=== PATIENT | male | born 1960 | race Caucasian/White ===

== ENCOUNTER 2020-07-26 14:34 | Emergency (ER) | payer BC, OTHER ==
[~2020-07-26] VITALS: Ht 183 cm; Wt 154.0 kg
[2020-07-26] MEDS ORDERED: HYDROcodone/APAP 7.5 MG/325 MG (LORTAB, LORCET PLUS) TABLET PO ONE (14:45)
--- NOTE | 2020-07-26 14:49 | ED Cough/URI ---
General Chief Complaint: Respiratory Problems Stated Complaint: COVID + History of Present Illness Date Seen by Provider: Jul 26, 2020 Time Seen by Provider: 14:49 Initial Comments 60-year-old male presents with cough, generalized malaise mild shortness of breath. Patient started having symptoms on 07/19/2020. Patient reports that he started feeling a little bit worse with some mildly increased feeling of shortness of breath and is worried about trying to make sure he does not get pneumonia. Patient tested positive for Covid on 07/24/2020. He denies any nausea vomiting diarrhea. He does not complain of a fever currently. Allergies and Home Medications Allergies Coded Allergies: No Known Drug Allergies (Unverified , 07/26/20) Patient Home Medication List Home Medication List Reviewed: Yes Review of Systems Review of Systems Constitutional: No dizziness; malaise Respiratory: cough, short of breath Cardiovascular: No chest pain, No palpitations Gastrointestinal: No abdominal pain, No nausea, No vomiting Genitourinary: no symptoms reported Musculoskeletal: no symptoms reported Skin: no symptoms reported Psychiatric/Neurological: No Symptoms Reported Past Cehjces-Rulkge-Tootmr Hx Past Med/Social Hx: Reviewed Nursing Past Med/Soc Hx Physical Exam Vital Signs - First Documented 07/26/20 14:40 Temp 37.4 Pulse 95 Resp 20 B/P (MAP) 134/90 (105) Pulse Ox 93 O2 Delivery Room Air Capillary Refill : Height: '" Weight: lbs. oz. kg; BMI Method: General Appearance: WD/WN, no apparent distress, obese Respiratory: lungs clear, normal breath sounds Cardiovascular: normal peripheral pulses, regular rate, rhythm Gastrointestinal: non tender, soft Extremities: non-tender, normal inspection Neurologic/Psychiatric: alert, normal mood/affect, oriented x 3 Skin: normal color, warm/dry Focused Exam Lactate Level 07/26/20 15:00: Lactic Acid Level 1.20 Lactic Acid Level Laboratory Tests Test 07/26/20 15:00 Lactic Acid Level 1.20 MMOL/L (0.50-2.00) Progress/Results/Core Measures Suspected Sepsis SIRS Temperature: Pulse: Respiratory Rate: Laboratory Tests 07/26/20 15:00: White Blood Count 5.8 Blood Pressure / Mean: 07/26/20 15:00: Lactic Acid Level 1.20 Laboratory Tests 07/26/20 15:00: Creatinine 0.91, INR Comment 1.0, Platelet Count 215, Total Bilirubin 0.4 Results/Orders Lab Results Laboratory Tests Test 07/26/20 15:00 Range/Units White Blood Count 5.8 4.3-11.0 10^3/uL Red Blood Count 4.93 4.30-5.52 10^6/uL Hemoglobin 14.4 13.3-17.7 g/dL Hematocrit 44 40-54 % Mean Corpuscular Volume 89 80-99 fL Mean Corpuscular Hemoglobin 29 25-34 pg Mean Corpuscular Hemoglobin Concent 33 32-36 g/dL Red Cell Distribution Width 12.9 10.0-14.5 % Platelet Count 215 130-400 10^3/uL Mean Platelet Volume 9.2 9.0-12.2 fL Immature Granulocyte % (Auto) 0 % Neutrophils (%) (Auto) 62 42-75 % Lymphocytes (%) (Auto) 24 12-44 % Monocytes (%) (Auto) 13 H 0-12 % Eosinophils (%) (Auto) 0 0-10 % Basophils (%) (Auto) 0 0-10 % Neutrophils # (Auto) 3.6 1.8-7.8 10^3/uL Lymphocytes # (Auto) 1.4 1.0-4.0 10^3/uL Monocytes # (Auto) 0.8 0.0-1.0 10^3/uL Eosinophils # (Auto) 0.0 0.0-0.3 10^3/uL Basophils # (Auto) 0.0 0.0-0.1 10^3/uL Immature Granulocyte # (Auto) 0.0 0.0-0.1 10^3/uL Prothrombin Time 13.2 12.2-14.7 SEC INR Comment 1.0 0.8-1.4 Activated Partial Thromboplast Time 33 24-35 SEC Fibrinogen 567 H 221-496 MG/DL Sodium Level 135 135-145 MMOL/L Potassium Level 4.2 3.6-5.0 MMOL/L Chloride Level 102 98-107 MMOL/L Carbon Dioxide Level 22 21-32 MMOL/L Anion Gap 11 5-14 MMOL/L Blood Urea Nitrogen 13 7-18 MG/DL Creatinine 0.91 0.60-1.30 MG/DL Estimat Glomerular Filtration Rate > 60 BUN/Creatinine Ratio 14 Glucose Level 115 H 70-105 MG/DL Lactic Acid Level 1.20 0.50-2.00 MMOL/L Calcium Level 9.1 8.5-10.1 MG/DL Corrected Calcium 9.3 8.5-10.1 MG/DL Total Bilirubin 0.4 0.1-1.0 MG/DL Aspartate Amino Transf (AST/SGOT) 25 5-34 U/L Alanine Aminotransferase (ALT/SGPT) 27 0-55 U/L Alkaline Phosphatase 47 40-136 U/L Lactate Dehydrogenase 339 H 125-220 U/L Troponin I < 0.028 <0.028 NG/ML C-Reactive Protein High Sensitivity 6.73 H 0.00-0.50 MG/DL Total Protein 6.8 6.4-8.2 GM/DL Albumin 3.8 3.2-4.5 GM/DL My Orders Orders - KYLEIGH MARIE L DO Vital Signs: Every 4 Hours (Or (07/26/20 14:49) Cbc With Automated Diff (07/26/20 14:49) Comprehensive Metabolic Panel (07/26/20 14:49) Ferritin (07/26/20 14:49) LDH (07/26/20 14:49) Hs C Reactive Protein (07/26/20 14:49) Troponin I (07/26/20 14:49) Lactic Acid Analyzer (07/26/20 14:49) Protime With Inr (07/26/20 14:49) Partial Thromboplastin Time (07/26/20 14:49) Fibrinogen (07/26/20 14:49) Ekg Tracing (07/26/20 14:49) Chest 1 View, Ap/Pa Only (07/26/20 14:49) Vital Signs/I&O 07/26/20 07/26/20 14:40 15:48 Temp 37.4 37.4 Pulse 95 91 Resp 20 20 B/P (MAP) 134/90 (105) 122/87 (105) Pulse Ox 93 93 O2 Delivery Room Air Capillary Refill : Progress Note : Progress Note Patient with no oxygen needs, he does have elevated BMI epidemic increased risk. He does qualify for a monoclonal antibiotic infusion. Patient will receive monoclonal antibody infusion today as an outpatient. Patient was stable and discharged home. ECG Initial ECG Impression Date: Jul 26, 2020 Initial ECG Impression Time: 15:07 Initial ECG Rate: 88 Initial ECG Rhythm: Normal Sinus Initial ECG Intervals: Normal Initial ECG Impression: Normal Comment nsr, hr 88, no acute findings Diagnostic Imaging Diagonstic Imaging: Xray Plain Films/CT/US/NM/MRI: chest [facility] [place] [place] NAME: HAVEN CHIU REC#: [id number] PT STATUS: REG ER : 1960 PHYSICIAN: KYLEIGH MARIE DO ADMIT DATE: 07/26/20/ER Draft Date of Exam:07/26/20 CHEST 1 VIEW, AP/PA ONLY INDICATION: Cough, sob, covid +. COMPARISON: None FINDINGS: Single frontal view of the chest demonstrates normal heart size and pulmonary vascularity. The lungs show low inspiratory volumes with patchy bibasilar airspace disease. No large pleural effusion or pneumothorax is seen. The visualized osseous structures show no acute abnormalities. IMPRESSION: 1. Low lung volumes with probable patchy bibasilar atelectasis. Dictated on workstation # [id number] Dict: 07/26/20 1526 Trans: 07/26/20 1529 [facility] [id number] Interpreted by: SHANTELLE JAVIER MD Reviewed: Reviewed by Me, Reviewed/Discussed Departure Impression Primary Impression: COVID-19 Disposition: 01 HOME, SELF-CARE Condition: Stable Departure-Patient Inst. Patient Instructions: Bamlanivimab FDA Fact Sheet, Coronavirus Disease 2019 (COVID-19) Overview KYLEIGH MARIE DO Jul 26, 2020 14:49
[2020-07-26 15:08] LABS: BASOPHILS % (AUTO) 0 % (0-10); EOSINOPHILS % (AUTO) 0 % (0-10); HEMATOCRIT 44 % (40-54); HEMOGLOBIN 14.4 g/dL (13.3-17.7); LYMPHOCYTES # (AUTO) 1.4 10^3/uL (1.0-4.0); LYMPHOCYTES % (AUTO) 24 % (12-44); MEAN CORPUSCULAR HEMOGLOBIN 29 pg (25-34); MEAN CORPUSCULAR HGB CONC 33 g/dL (32-36); MEAN CORPUSCULAR VOLUME 89 fL (80-99); MEAN PLATELET VOLUME 9.2 fL (9.0-12.2); MONOCYTES # (AUTO) 0.8 10^3/uL (0.0-1.0); MONOCYTES % (AUTO) 13 % (0-12); NEUTROPHILS # (AUTO) 3.6 10^3/uL (1.8-7.8); NEUTROPHILS % (AUTO) 62 % (42-75); PLATELET COUNT 215 10^3/uL (130-400); WHITE BLOOD COUNT 5.8 10^3/uL (4.3-11.0)
[2020-07-26 15:19] LABS: PROTHROMBIN TIME PATIENT 13.2 SEC (12.2-14.7)
[2020-07-26 15:20] LABS: ALBUMIN 3.8 GM/DL (3.2-4.5); CHLORIDE 102 MMOL/L (98-107); POTASSIUM 4.2 MMOL/L (3.6-5.0); SODIUM 135 MMOL/L (135-145)
[2020-07-26 15:21] LABS: CALCIUM 9.1 MG/DL (8.5-10.1)
[2020-07-26 15:22] LABS: GLUCOSE 115 MG/DL (70-105); TOTAL PROTEIN 6.8 GM/DL (6.4-8.2)
[2020-07-26 15:23] LABS: CARBON DIOXIDE 22 MMOL/L (21-32)
[2020-07-26 15:24] LABS: BILIRUBIN,TOTAL 0.4 MG/DL (0.1-1.0)
[2020-07-26 15:26] LABS: ALKALINE PHOSPHATASE 47 U/L (40-136); CREATININE SERUM 0.91 MG/DL (0.60-1.30); GFR ESTIMATED > 60
[2020-07-26 15:27] LABS: BUN/CREATININE RATIO 14
[2020-07-26 15:29] LABS: ALANINE AMINOTRANSFERASE 27 U/L (0-55)
--- NOTE | 2020-07-26 15:29 | Diagnostic Imaging Report ---
INDICATION: Cough, sob, covid +. COMPARISON: None FINDINGS: Single frontal view of the chest demonstrates normal heart size and pulmonary vascularity. The lungs show low inspiratory volumes with patchy bibasilar airspace disease. No large pleural effusion or pneumothorax is seen. The visualized osseous structures show no acute abnormalities. IMPRESSION: 1. Low lung volumes with probable patchy bibasilar atelectasis. Dictated by: Dictated on workstation # [id number]
[2020-07-26 15:48] VITALS: BP 122/87
== END 2020-07-26 15:48 | disposition home or self-care (01) ==
LOC: ER 14:36
DX: U07.1 COVID-19 (principal); E66.9 Obesity, unspecified
CPT/HCPCS: 36415; 71045; 80053; 82728; 83605; 83615; 84484; 85025; 85384; 85610; 85730; 86141; 93005

== ENCOUNTER → 2020-07-26 | Outpatient (CLI) | payer BC ==
[~2020-07-26] VITALS: Ht 183 cm; Wt 154.0 kg
[~2020-07-26] MED LIST: BAMLANIVIMAB (NON FORM) 700 MG in NS (IVPB) 100 ML IV ONE; EPINEPHrine INJECTION 1 MG/ML AMP IM PRN; diphenhydrAMINE 50 MG/ML INJ (BENADRYL) IV PRN
[2020-07-26 16:45] VITALS: BP 134/90
[2020-07-26 18:15] VITALS: BP 121/75
== END ==
LOC: INFUSION 16:34
PROVIDERS: ATTEND Student in an Organized Health Care Education/Training Program
DX: U07.1 COVID-19 (principal)

== ENCOUNTER 2020-11-16 21:14 | Emergency (ER) | payer BC ==
[~2020-11-16] VITALS: Ht 182.9 cm; Wt 155.0 kg
--- NOTE | 2020-11-16 21:17 | ED Abdominal Pain ---
General Chief Complaint: Abdominal/GI Problems Stated Complaint: LOWER RT SIDE BACK PAIN History of Present Illness Date Seen by Provider: Nov 16, 2020 Time Seen by Provider: 21:17 Initial Comments 60-year-old male presents with right low flank/back pain. He reports that he was "just sitting there" around 7 to 7:30 PM when the pain hit him. It has been fairly constant. He cannot find a comfortable position. He does not have any nausea, vomiting or urinary symptoms. He has no recent injury or increased activity. Allergies and Home Medications Allergies Coded Allergies: No Known Drug Allergies (Unverified , 07/26/20) Patient Home Medication List Home Medication List Reviewed: Yes Review of Systems Review of Systems Constitutional: no symptoms reported EENTM: No Symptoms Reported Respiratory: No Symptoms Reported Cardiovascular: No Symptoms Reported Gastrointestinal: No Symptoms Reported Genitourinary: See HPI Musculoskeletal: see HPI Psychiatric/Neurological: No Symptoms Reported Endocrine: No Symptoms Reported Past Hyjtzps-Jcxlxa-Odlkqg Hx Past Med/Social Hx: Reviewed Nursing Past Med/Soc Hx Patient Social History Recent Hopitalizations: No Seasonal Allergies Seasonal Allergies: No Past Medical History Surgeries: Yes Gallbladder Respiratory: No Cardiac: Yes High Cholesterol, Hypertension Neurological: No Genitourinary: No Gastrointestinal: No Musculoskeletal: No Endocrine: No HEENT: No Cancer: No Psychosocial: No Integumentary: No Physical Exam Vital Signs Vital Signs - First Documented 11/16/20 21:20 Temp 36.8 Pulse 75 Resp 18 B/P (MAP) 161/99 (119) Pulse Ox 99 O2 Delivery Room Air Capillary Refill : Height/Weight/BMI Height: '" Weight: lbs. oz. kg; 45.00 BMI Method: General Appearance: no apparent distress Respiratory: lungs clear, normal breath sounds Cardiovascular: normal peripheral pulses, regular rate, rhythm Gastrointestinal: non tender, soft Extremities: normal range of motion, non-tender Back: CVA tenderness (R) Neurologic/Psychiatric: alert, normal mood/affect, oriented x 3 Skin: normal color, warm/dry Progress/Results/Core Measures Results/Orders Lab Results Laboratory Tests Test 11/16/20 21:25 11/16/20 21:35 Range/Units Urine Color YELLOW Urine Clarity CLEAR Urine pH 5.5 5-9 Urine Specific [place] >=1.030 1.016-1.022 Urine Protein NEGATIVE NEGATIVE Urine Glucose (UA) NEGATIVE NEGATIVE Urine Ketones NEGATIVE NEGATIVE Urine Nitrite NEGATIVE NEGATIVE Urine Bilirubin NEGATIVE NEGATIVE Urine Urobilinogen 0.2 < = 1.0 MG/DL Urine Leukocyte Esterase NEGATIVE NEGATIVE Urine RBC (Auto) 2+ H NEGATIVE Urine RBC 2-5 H /HPF Urine WBC RARE /HPF Urine Squamous Epithelial Cells NONE /HPF Urine Crystals NONE /LPF Urine Bacteria TRACE /HPF Urine Casts NONE /LPF Urine Mucus SMALL H /LPF Urine Culture Indicated NO White Blood Count 8.5 4.3-11.0 10^3/uL Red Blood Count 4.95 4.35-5.85 10^6/uL Hemoglobin 14.6 13.3-17.7 G/DL Hematocrit 44 40-54 % Mean Corpuscular Volume 89 80-99 FL Mean Corpuscular Hemoglobin 29 25-34 PG Mean Corpuscular Hemoglobin Concent 33 32-36 G/DL Red Cell Distribution Width 13.6 10.0-14.5 % Platelet Count 316 130-400 10^3/uL Mean Platelet Volume 9.2 7.4-10.4 FL Immature Granulocyte % (Auto) 0 % Neutrophils (%) (Auto) 44 42-75 % Lymphocytes (%) (Auto) 42 12-44 % Monocytes (%) (Auto) 12 0-12 % Eosinophils (%) (Auto) 2 0-10 % Basophils (%) (Auto) 1 0-10 % Neutrophils # (Auto) 3.7 1.8-7.8 X 10^3 Lymphocytes # (Auto) 3.5 1.0-4.0 X 10^3 Monocytes # (Auto) 1.0 0.0-1.0 X 10^3 Eosinophils # (Auto) 0.2 0.0-0.3 10^3/uL Basophils # (Auto) 0.1 0.0-0.1 10^3/uL Immature Granulocyte # (Auto) 0.0 0.0-0.1 10^3/uL Sodium Level 138 135-145 MMOL/L Potassium Level 4.0 3.6-5.0 MMOL/L Chloride Level 104 98-107 MMOL/L Carbon Dioxide Level 23 21-32 MMOL/L Anion Gap 11 5-14 MMOL/L Blood Urea Nitrogen 17 7-18 MG/DL Creatinine 1.19 0.60-1.30 MG/DL Estimat Glomerular Filtration Rate > 60 BUN/Creatinine Ratio 14 Glucose Level 109 H 70-105 MG/DL Calcium Level 9.0 8.5-10.1 MG/DL Corrected Calcium 9.0 8.5-10.1 MG/DL Total Bilirubin 0.4 0.1-1.0 MG/DL Aspartate Amino Transf (AST/SGOT) 19 5-34 U/L Alanine Aminotransferase (ALT/SGPT) 22 0-55 U/L Alkaline Phosphatase 59 40-136 U/L Total Protein 6.9 6.4-8.2 GM/DL Albumin 4.0 3.2-4.5 GM/DL My Orders Orders - KYLEIGH MARIE DO Cbc With Automated Diff (11/16/20 21:22) Comprehensive Metabolic Panel (11/16/20 21:22) Ua Culture If Indicated (11/16/20 21:22) Ketorolac Injection (Toradol Injection) (11/16/20 21:22) Ct Abdomen/Pelvis Wo (11/16/20 21:45) Vital Signs/I&O 11/16/20 21:20 Temp 36.8 Pulse 75 Resp 18 B/P (MAP) 161/99 (119) Pulse Ox 99 O2 Delivery Room Air Progress Progress Note : Progress Note Patient with a 3 mm distal right ureter stone. Patient with mild symptoms. He is will try Tylenol and ibuprofen as needed for pain. If he needs further pain medication he will follow-up with a primary care provider tomorrow. Patient stable and discharged home Diagnostic Imaging Diagonstic Imaging: CT Plain Films/CT/US/NM/MRI: abdomen Comments 3 mm kidney stone approximately 2 cm above the UVJ, distal right ureter Reviewed: Reviewed [facility] Study Departure Impression Primary Impression: Right distal ureteral calculus Disposition: 01 HOME, SELF-CARE Condition: Stable Departure-Patient Inst. Referrals: SELF,ZENIA MOROCHO (PCP/Family) Primary Care Physician Patient Instructions: Kidney Stones in Adults, How to Strain Your Urine Add. Discharge Instructions: Follow-up with your primary care provider and neurologist as needed Tylenol and ibuprofen as needed for pain All discharge instructions reviewed with patient and/or family. Voiced understanding. KYLEIGH MARIE DO Nov 16, 2020 21:17
[2020-11-16] MEDS ORDERED: KETOROLAC 30 MG/ML VIAL IVP STA (21:22)
[2020-11-16 21:41] LABS: BILIRUBIN,URINE NEGATIVE (NEGATIVE); CLARITY,URINE CLEAR; COLOR,URINE YELLOW; GLUCOSE, URINE (UA) NEGATIVE (NEGATIVE); KETONES,URINE NEGATIVE (NEGATIVE); LEUKOCYTE ESTERASE ,URINE NEGATIVE (NEGATIVE); NITRITE,URINE NEGATIVE (NEGATIVE); PH,URINE 5.5 (5-9); PROTEIN,URINE NEGATIVE (NEGATIVE)
[2020-11-16 21:42] LABS: BACTERIA,URINE TRACE /HPF; WBC,URINE RARE /HPF
[2020-11-16 21:44] LABS: BASOPHILS % (AUTO) 1 % (0-10); EOSINOPHILS % (AUTO) 2 % (0-10); HEMATOCRIT 44 % (40-54); HEMOGLOBIN 14.6 G/DL (13.3-17.7); LYMPHOCYTES % (AUTO) 42 % (12-44); MEAN CORPUSCULAR HEMOGLOBIN 29 PG (25-34); MEAN CORPUSCULAR HGB CONC 33 G/DL (32-36); MEAN CORPUSCULAR VOLUME 89 FL (80-99); MEAN PLATELET VOLUME 9.2 FL (7.4-10.4); MONOCYTES % (AUTO) 12 % (0-12); NEUTROPHILS % (AUTO) 44 % (42-75); PLATELET COUNT 316 10^3/uL (130-400); WHITE BLOOD COUNT 8.5 10^3/uL (4.3-11.0)
[2020-11-16 21:45] LABS: BASOPHILS # (AUTO) 0.1 10^3/uL (0.0-0.1); EOSINOPHILS # (AUTO) 0.2 10^3/uL (0.0-0.3); LYMPHOCYTES # (AUTO) 3.5 X 10^3 (1.0-4.0); NEUTROPHILS # (AUTO) 3.7 X 10^3 (1.8-7.8)
[2020-11-16 22:03] LABS: SODIUM 138 MMOL/L (135-145)
[2020-11-16 22:04] LABS: ALANINE AMINOTRANSFERASE 22 U/L (0-55); ALKALINE PHOSPHATASE 59 U/L (40-136); BILIRUBIN,TOTAL 0.4 MG/DL (0.1-1.0); BUN/CREATININE RATIO 14; CARBON DIOXIDE 23 MMOL/L (21-32); CHLORIDE 104 MMOL/L (98-107); CREATININE SERUM 1.19 MG/DL (0.60-1.30); GFR ESTIMATED > 60; GLUCOSE 109 MG/DL (70-105); TOTAL PROTEIN 6.9 GM/DL (6.4-8.2)
[2020-11-16 23:00] VITALS: BP 161/99
--- NOTE | 2020-11-17 08:19 | Diagnostic Imaging Report ---
PROCEDURE: CT abdomen and pelvis without contrast. TECHNIQUE: Multiple contiguous axial images were obtained through the abdomen and pelvis without the use of intravenous contrast. Auto Exposure Controls were utilized during the CT exam to meet ALARA standards for radiation dose reduction. INDICATION: Right-sided flank pain. FINDINGS: Seen best on image 125 series 3 is a small calculus in the distal right ureter stone measuring about 3 mm in length by less than 1 mm width. This is found roughly 2 cm above the level of ureterovesical junction. It results in very slight upstream hydroureteronephrosis with mild right perinephric stranding. Renal parenchyma is comprised of innumerable cysts some of which showed rim calcifications others are hyperdense likely hemorrhagic. Renal mass evaluation is limited by the absence of contrast. There is no associated nephromegaly. The adrenals are negative. Spleen and pancreas nonacute. There was no evidence for hepatic involvement by cystic disease. The gallbladder surgically absent. No pathological distention of bile ducts. There is no ileus or bowel obstruction. No ascites, abscess, hematoma or acute fluid collection. Noninflamed fatty left inguinal hernia. There are few noninflamed diverticuli of the sigmoid. IMPRESSION: 1. Small linear calculus distal right ureter results in very slight upstream hydroureteronephrosis and perinephric stranding. 2. Innumerable cysts throughout the bilateral renal parenchyma with cysts showing variable degrees of complexity. Renal mass evaluation limited owing to the absence of contrast. Noninflamed diverticulosis, noninflamed left inguinal fatty hernia, previous cholecystectomy. Dictated by: Dictated on workstation # [id number]
== END 2020-11-16 23:00 | disposition home or self-care (01) ==
LOC: EDUNIT# 21:14 → ER FS 21:15
DX: N13.2 Hydronephrosis with renal and ureteral calculous obstruction (principal); I10 Essential (primary) hypertension
CPT/HCPCS: 36415; 74176; 80053; 81000; 85025

== ENCOUNTER 2022-07-03 05:20 | Outpatient (CLI) | payer BC ==
[~2022-07-03] VITALS: Ht 182.9 cm; Wt 150.6 kg
[2022-07-04] MEDS ORDERED: SIMV40TA25 PO (09:06)
[2022-07-04] MEDS ORDERED: CARV12.53 PO (09:06)
[2022-07-04] MEDS ORDERED: BENA10TA66 PO (09:06)
== END 2022-07-04 12:25 | disposition home or self-care (01) ==
LOC: PREOP 05:20
PROVIDERS: ATTEND Podiatrist Foot & Ankle Surgery
DX: Z01.818 Encounter for other preprocedural examination (principal)

== ENCOUNTER 2022-07-09 08:25 | Day surgery (SDC) | payer BC ==
[2022-07-09] VITALS (9 sets, daily range): BP systolic 124–149; BP diastolic 89–101
[~2022-07-09] VITALS: Ht 182.9 cm; Wt 150.6 kg
[~2022-07-09 08:25] MED LIST changes: -BAMLANIVIMAB (NON FORM) 700 MG in NS (IVPB) 100 ML IV ONE; +BENA10TA66 PO; +CARV12.53 PO; -EPINEPHrine INJECTION 1 MG/ML AMP IM PRN; +SIMV40TA25 PO; -diphenhydrAMINE 50 MG/ML INJ (BENADRYL) IV PRN
[2022-07-09] MEDS ORDERED: ceFAZolin INJECTION 1,000 MG in NS (IVPB) 50 ML IV ONE (08:45)
[2022-07-09] MEDS ORDERED: LACTATED RINGERS 1,000 ML IV PRN (08:45)
[2022-07-09] MEDS ORDERED: BUPIVACAINE 0.5% 30 ML (SENSORCAINE) VIAL ONE (10:40)
[2022-07-09] MEDS ORDERED: LIDOCAINE 1% INJ 20 ML VIAL ONE (10:40)
[2022-07-09] MEDS ORDERED: MIDAZOLAM 2 MG/2 ML (VERSED) VIAL ONE (10:43)
[2022-07-09] MEDS ORDERED: fentaNYL INJ 100 MCG/2 ML AMP ONE (10:43)
[2022-07-09] MEDS ORDERED: proPOfol 200 MG/20 ML (DIPRIVAN) VIAL IV ONE (10:43)
[2022-07-09] MEDS ORDERED: SEVOFLURANE (ULTANE) 15 ML INHAL SOLN ONE ×2 (10:43→11:37)
[2022-07-09] MEDS ORDERED: ONDANSETRON 4 MG/2 ML (SDV) Z0FRAN ONE (10:43)
[2022-07-09] MEDS ORDERED: LIDOCAINE PF 2% 5 ML (XYLOCAINE) VIAL ONE (10:43)
--- NOTE | 2022-07-09 11:02 | Progress Note-Pre Operative ---
Pre-Operative Progress Note Date of Available H&P: Jul 09, 2022 Date H&P Reviewed: Jul 09, 2022 Time H&P Reviewed: 11:01 Pre-Operative Diagnosis: Tarsal Tunnel Syndrome, right SIXTO GALLEGOS DPMary Jul 09, 2022 11:01
[2022-07-09] MEDS ORDERED: PHENYLEPHRINE 100 MCG/ML 10 ML (ANESTHESIA) SYR ONE (11:33)
[2022-07-09] MEDS ORDERED: NEOSTIGMINE (BLOXIVERZ ) 1 MG/1ML 10 ML VIAL ONE (11:33)
--- NOTE | 2022-07-09 12:03 | Anesthesia-General Post-Op ---
General Patient Condition Mental Status/LOC: Same as Preop Cardiovascular: Satisfactory Nausea/Vomiting: Absent Respiratory: Satisfactory Pain: Controlled Complications: Absent Post Op Complications Complications None Follow Up Care/Instructions Patient Instructions None needed. Anesthesia/Patient Condition Patient Condition Patient is doing well, no complaints, stable vital signs, no apparent adverse anesthesia problems. No complications reported per nursing. LORAINE STEWARD CRNA Jul 09, 2022 12:03
--- NOTE | 2022-07-09 12:04 | Progress Note-Post Operative ---
Post-Operative Progess Note Surgeon (s)/Resident Services Director (s) Surgeon SIXTO GALLEGOS DPM Resident Services Director: none Pre-Operative Diagnosis Tarsal Tunnel Syndrome, right Post-Operative Diagnosis same Procedure & Operative Findings Date of Procedure 07/09/22 Procedure Performed/Findings Tarsal Tunnel Release, right Anesthesia Type General Estimated Blood Loss Estimated blood loss (mL): Minimal Specimens/Packing Specimens Removed None SIXTO GALLEGOS DPM Jul 09, 2022 12:04
[2022-07-09] MEDS ORDERED: ACHD5005 PO (12:06)
[2022-07-09] MEDS ORDERED: ONDANSETRON 4 MG/2 ML (SDV) Z0FRAN IVP PRN (12:15)
[2022-07-09] MEDS ORDERED: fentaNYL INJ 100 MCG/2 ML AMP IVP ONE (12:15)
[2022-07-09] MEDS ORDERED: HYDROcodone/APAP 5 MG/325 MG (LORTAB) TAB PO PRN (12:15)
[2022-07-09] MEDS ORDERED: LACTATED RINGERS 1,000 ML IV SCH (12:15)
--- NOTE | 2022-07-09 13:33 | Physical Therapy Ortho Eval ---
PT Orthopedic Evaluation Type of Surgery Tarsal Tunnel Syndrome, right Prior Level of Function Current Living Status: Spouse Locomotion (Upon Admit): Independent Established Durable Medical Eq: None Subjective Entry Into Home: Stairs With Railing Steps Into Home: 3 Motor Control Motor Control: Motor Control WNL ROM ROM: WFL, except focal deficit Strength Strength: WFL Transfer SCALE: Activities may be completed with or without assistive devices. 1-Oqzegrfssx-yamoyrc completes the activity by him/herself with no assistance from a helper. 5-Set-up or Clean-up Assistance-helper sets up or cleans up; patient completes activity. [place] assists only prior to or following the activity. 4-Supervision or Touching Assistance-helper provides verbal cues and/or touching/steadying and/or contact guard assistance as patient completes activi ty. Assistance may be provided throughout the activity or intermittently. 3-Partial/Moderate Assistance-helper does LESS THAN HALF the effort. [place] lifts, holds or supports trunk or limbs, but provides less than half the effort. 2-Substantial/Maximal Assistance-helper does MORE THAN HALF the effort. [place] lifts or holds trunk or limbs and provides more than half the effort. 3-Phnfdpjhg-hluicy does ALL the effort. Patient does none of the effort to complete the activity. Or, the assistance of 2 or more helpers is required for the patient to complete the activity. If activity was not attempted, code reason: 7-Patient Refused. 9-Not Applicable-not attempted and the patient did not perform the activity before the current illness, exacerbation or injury. 10-Not Attempted due to Environmental Limitations-(lack of equipment, weather restraints, etc.). 88-Not Attempted due to Medical Conditions or Safety Concerns. Transfers (B, C, W/C) (QC): 6 Gait Gait Assistive Device: Crutches Right Lower Extremity: Right Weight Bearing Status RLE: Non Weight Bearing Left Lower Extremity: Left Weight Bearing Status LLE: Full Weight Bearing difficulty with NWB right foot with FWW and crutch use Gait (QC): 3 Distance: 150' Summary/Comments VC's for body placement in FWW and crutch use/unable to maintain NWB right foot Stairs #of Steps: 1 Walking Assistive Device: Crutches mod assist Treatment Rendered Treatment: Gait Train, Step Train, Reviewed Precautions Assessment/Goals Goal Time Frame: 1 Visit Plan Treatment Plan: Discharge, Education Time Time In: 1300 Time Out: 1313 Total Billed Treatment Time: 13 [facility] PT Jul 09, 2022 13:33
--- NOTE | 2022-07-09 20:55 | OPERATIVE REPORT ---
DATE OF SERVICE: 07/09/2022 SURGEON: Sixto Gallegos DPM PREOPERATIVE DIAGNOSIS: Tarsal tunnel syndrome, right. POSTOPERATIVE DIAGNOSIS: Tarsal tunnel syndrome, right. PROCEDURE: Tarsal tunnel release, right. WOUND CLASS: Clean. ANESTHESIA: General. HEMOSTASIS: Pneumatic thigh tourniquet at 300 mmHg. INDICATIONS: This 62-year-old male presents complaining of painful right foot and ankle. He has been diagnosed with tarsal tunnel syndrome. Conservative therapy has met with unsatisfactory results and the patient is agreeable to surgical intervention after risks and complications were discussed at length. No guarantees were extended to the patient and he is willing to proceed. DESCRIPTION OF PROCEDURE: The patient was brought back to the operating table and placed in secure supine position. Appropriate time-out was performed. A general anesthetic was then induced. A pneumatic thigh tourniquet was placed on the right lower extremity over several layers of padding. The right foot was then prepped and draped in normal sterile manner. The right foot was then elevated and allowed to exsanguinate after which the tourniquet was inflated to 300 mmHg. Attention was then directed to the medial aspect of the right foot and ankle where a 6 cm curvilinear incision was created just posterior to the medial malleolus to the inferior aspect of the medial malleolus to the stacy pedis area. The incision was deepened in the same plane. Care to identify and retract all vital neurovascular structures. Only necessary blood vessels were cauterized as encountered. The incision was deepened down with a combination of blunt and sharp dissection to the flexor retinaculum. The flexor retinaculum was tented utilizing a curved hemostat after which the flexor retinaculum was carefully dissected protecting the underlying neurovascular and tendinous structures. Once the flexor retinaculum was released, the [place] was visualized with the posterior tibial artery visualized. No abnormality beyond the tight flexor retinaculum was identified. The dissection was carried out to the posterior aspect of the medial malleolus and distally to the stacy pedis. Digital dilation was utilized to make sure there was no tight area for the neurovascular bundle as it entered into the plantar aspect of the right foot. The tourniquet was released, noting no active bleeders. The wound was flushed with copious amounts of normal saline. Closure was then performed in layers. The subcutaneous tissue was reapproximated utilizing 4-0 Vicryl, skin closure with 4-0 Prolene in a horizontal mattress type stitch. Postoperative injection consisted of 10 mL of 0.5% Marcaine injected in a local effusion to the surgical site. Sterile 4 x 4's, sterile Kerlix, ABDs, a posterior splint, wrapped over soft roll, followed by application of two Anthony wraps. The patient tolerated the anesthesia and procedure well and was transported from the operating room to the recovery room with vital signs stable and vascular status intact to all digits of the right foot. He is to be nonweightbearing on the right lower extremity. He is to follow up in my office in 10 days time or sooner if necessary. Job ID: [id number] DocumentID: [id number] Dictated Date: 07/09/2022 12:15:11 Textile Pin Worker Date: 07/09/2022 20:53:00 Dictated By: SIXTO GALLEGOS DPM
== END 2022-07-09 13:50 | disposition home or self-care (01) ==
LOC: SDC 08:25
PROVIDERS: ATTEND Podiatrist Foot & Ankle Surgery
DX: G57.51 Tarsal tunnel syndrome, right lower limb (principal); I10 Essential (primary) hypertension; E66.01 Morbid (severe) obesity due to excess calories; Z79.899 Other long term (current) drug therapy; Z68.42 Body mass index [BMI] 45.0-49.9, adult
CPT/HCPCS: 87081